=== PATIENT | female | born 1950 | race Caucasian/White ===

== ENCOUNTER 2021-07-12 08:56 | Outpatient (REF) | payer MEDICARE, OTHER, SELFPAY ==
[2021-07-12 11:28] LABS: MANUAL DIFF FLAG NO
[2021-07-12 11:46] LABS: Basophils Percent Auto 0.8 % (0-2); Eosinophils Absolute Auto 0.2 X10*3/uL (0.0-0.4); Eosinophils Percent Auto 4.3 % (0-4); Hematocrit 39.6 % (37.0-47.0); Hemoglobin 12.9 g/dl (12.0-16.0); Imm Gran Abs Auto 0.01 X10*3/uL (0.00-0.03); Imm Gran Pct Auto 0.2 % (0.0-0.4); Lymphocytes Absolute Auto 1.6 X10*3/uL (1.2-4.9); Lymphocytes Percent Auto 29.6 % (20-40); Mean Corpuscular HGB Conc 32.6 g/dl (31.0-35.0); Mean Corpuscular Hemoglobin 31.5 pg (27.0-33.0); Mean Corpuscular Volume 96.6 fL (80.0-98.0); Mean Platelet Volume 11.1 fL (9.4-12.3); Monocytes Absolute Auto 0.5 X10*3/uL (0.1-1.2); Neutrophils Percent Auto 56.1 % (45-73); Platelet Count 257 X10*3/uL (160-400); Red Cell Distribution Width 12.7 % (11.0-16.0); White Blood Count 5.3 X10*3/uL (4.8-10.8)
[2021-07-12 12:03] LABS: Alanine Aminotransferase 15 U/L (0-31); Albumin Level 4.2 g/dL (3.5-5.0); Alkaline Phosphatase 83 U/L (39-117); Anion Gap 12 (12-20); Aspartate Amino Transferase 21 U/L (5-31); Bilirubin Total 0.6 mg/dL (0.0-1.0); Blood Urea Nitrogen 16 mg/dL (9-16); Calcium 9.4 mg/dL (8.4-10.2); Carbon Dioxide 28 mmol/L (22-29); Chloride 101 mmol/L (96-108); Cholesterol 303 mg/dL; Estimated Glomerular Filt Rate > 60; Glucose Fasting 103 mg/dL (60-99); HDL Cholesterol 68 mg/dL; LDL Cholesterol Calculated 223 mg/dl; Potassium 4.8 mmol/L (3.3-5.1); Sodium 136 mmol/L (135-145); Total Protein 6.9 g/dL (6.5-8.0); Triglycerides 61 mg/dL
[2021-07-12 12:14] LABS: Free T4 (Free Thyroxine) 1.02 ng/dL (0.71-1.85); Thyroid Stimulating Hormone 1.44 uIU/mL (0.32-4.0)
== END 2021-07-12 08:57 | disposition home or self-care (01) ==
LOC: HO.HMGCLDS 08:56
PROVIDERS: PCP Internal Medicine; Visit Provider Internal Medicine
DX: E78.5 Hyperlipidemia, unspecified (principal); I10 Essential (primary) hypertension; E05.81 Other thyrotoxicosis with thyrotoxic crisis or storm
CPT/HCPCS: 36415; 80053; 80061; 84439; 84443; 85025

== ENCOUNTER 2021-11-28 08:08 | Outpatient (REF) | payer MEDICARE, OTHER, SELFPAY ==
[2021-11-28 12:03] LABS: Cholesterol 165 mg/dL; HDL Cholesterol 73 mg/dL; LDL Cholesterol Calculated 83 mg/dl; Triglycerides 49 mg/dL
== END 2021-11-28 08:09 | disposition home or self-care (01) ==
LOC: HO.HMGCLDS 08:08
PROVIDERS: PCP Internal Medicine; Visit Provider Internal Medicine
DX: E78.2 Mixed hyperlipidemia (principal)
CPT/HCPCS: 36415; 80061

== ENCOUNTER 2022-08-16 11:00 | Outpatient (REF) | payer MEDICARE, OTHER, SELFPAY ==
[2022-08-16 14:08] LABS: Cholesterol 190 mg/dL; HDL Cholesterol 77 mg/dL; LDL Cholesterol Calculated 103 mg/dl; Triglycerides 50 mg/dL
== END 2022-08-16 11:01 | disposition home or self-care (01) ==
LOC: HO.HMGCLDS 11:00
PROVIDERS: PCP Internal Medicine; Visit Provider Internal Medicine
DX: E78.2 Mixed hyperlipidemia (principal)
CPT/HCPCS: 36415; 80061

== ENCOUNTER 2023-06-04 08:40 | Outpatient (REF) | payer MEDICARE, OTHER, SELFPAY ==
--- NOTE | ~2023-06-04 | MM_ITS ---
EXAMINATION: BONE DENSITOMETRY CLINICAL INDICATION: Other specified disorders of bone density and structure. COMPARISON: Baseline BD dated 05/12/2019. TECHNIQUE: Using a [employer] Mobile DXA System (software version: 13.1) manufactured by [employer], dual-energy x-ray absorptiometry was performed of the lumbar spine and left hip. The images are of good technical quality. Summary results are attached. FINDINGS: LEFT FEMUR, NECK: Current: BMD 0.737 g/cm2, Z-score -0.7, T-score -2.2, osteopenia. Baseline: BMD 0.777 g/cm2. LEFT FEMUR, TOTAL: Current: BMD 0.797 g/cm2, Z-score -0.4, T-score -1.7, osteopenia, 10.1% decrease from baseline (<5% change is not significant). Baseline: BMD 0.887 g/cm2. AP SPINE L1-L4: Current: BMD 0.838 g/cm2, Z-score -1.5, T-score -2.8, osteoporosis, 15.6% decrease from baseline (<5% change is not significant). Baseline: BMD 0.993 g/cm2. IDENTIFIED RISK FACTORS: Menopause, thiazide, low calcium intake. HISTORY OF FRACTURE: None listed. MEDICATIONS: Vitamin D. MM/XR DEXA axial skeleton IMPRESSION: 1. DIAGNOSIS: Osteoporosis based on the lowest T-score value of -2.8 in the lumbar spine applying World Health Organization criteria. 2. 10-YEAR FRACTURE RISK PREDICTION, FRAX: According to the guidelines, FRAX calculation should only be performed on patients in the osteopenia bone density category. Therefore, FRAX was not performed on this patient. 3. Treatment Recommendations: NOF guidelines recommend consideration for treatment in postmenopausal women and men age 50 and older presenting with the following: -A hip or vertebral (clinical or morphometric) fracture. -T-score less than or equal to -2.5 at the femoral neck or spine after appropriate evaluation to exclude secondary causes. -Low bone mass at the hip or spine and a 10-year fracture probability by FRAX of greater than or equal to 3% for hip fracture or greater than or equal to 20% for major osteoporotic fracture based on the [place] adapted WHO algorithm. 4. Other Recommendations: All treatment decisions require clinical judgment and consideration of individual patient factors, including patient preferences, comorbidities, previous drug use, risk factors not captured in the FRAX model (e.g. frailty, falls, vitamin D deficiency, increased bone turnover, interval significant decline in bone density) and possible under or overestimation of fracture risk by FRAX. Additional medical evaluation for secondary cause of low bone mineral density may be appropriate. FUTURE SCAN RECOMMENDATION: People with diagnosed cases of osteoporosis or at high risk for fracture should have regular bone mineral density tests. For patients eligible for Medicare, routine testing is allowed once every 2 years. The testing frequency can be increased to one year for patients who have rapidly progressing disease, those who are receiving or discontinuing medical therapy to restore bone mass, or have additional risk factors.
== END 2023-06-04 08:41 | disposition home or self-care (01) ==
LOC: HO.MAMMO 08:40
PROVIDERS: PCP Internal Medicine; Visit Provider Physician Assistant Medical
DX: Z13.820 Encounter for screening for osteoporosis (principal); Z78.0 Asymptomatic menopausal state; M85.89 Other specified disorders of bone density and structure, multiple sites
CPT/HCPCS: 77080

== ENCOUNTER 2024-03-27 07:56 | Outpatient (REF) | payer MEDICARE, OTHER, SELFPAY ==
[2024-03-27 10:54] LABS: Appearance Urine Cloudy; Color Urine Yellow; Glucose Urine UA Negative (Negative); Leukocyte Esterase Urine Moderate (2+) (Negative); Nitrite Urine Negative (Negative); Specific Gravity - Urine 1.015 (1.005-1.025); UMIC TRIGGER UA YES; Urine Blood Negative (Negative); Urine Ketones Negative (Negative); Urine Protein Negative (Neg-Trace)
[2024-03-27 10:55] LABS: MANUAL DIFF FLAG NO
[2024-03-27 11:05] LABS: Basophils Percent Auto 0.6 % (0-2); Eosinophils Absolute Auto 0.1 X10*3/uL (0.0-0.4); Hematocrit 37.1 % (37.0-47.0); Hemoglobin 12.2 g/dl (12.0-16.0); Imm Gran Abs Auto 0.01 X10*3/uL (0.00-0.03); Imm Gran Pct Auto 0.2 % (0.0-0.4); Lymphocytes Absolute Auto 1.5 X10*3/uL (1.2-4.9); Mean Corpuscular HGB Conc 32.9 g/dl (31.0-35.0); Mean Corpuscular Hemoglobin 31.5 pg (27.0-33.0); Mean Corpuscular Volume 95.9 fL (80.0-98.0); Mean Platelet Volume 10.4 fL (9.4-12.3); Monocytes Absolute Auto 0.6 X10*3/uL (0.1-1.2); Monocytes Percent Auto 11.3 % (2-11); Neutrophils Absolute Auto 2.8 x10*3/uL (2.0-8.3); Neutrophils Percent Auto 55.9 % (45-73); Platelet Count 249 X10*3/uL (160-400); Red Blood Count 3.87 X10*6/uL (4.20-5.50); Red Cell Distribution Width 13.1 % (11.0-16.0)
[2024-03-27 11:06] LABS: Bacteria Urine None Seen (None Seen); Hyaline Casts Urine 0-2 /LPF (0-2); RBC Urine 0-2 /HPF (0-2); Squamous Epithelial Cell Urine 0-2 /HPF (0-2); WBC Urine 0-5 /HPF (0-5)
[2024-03-27 11:35] LABS: Alanine Aminotransferase 21 U/L (0-31); Alkaline Phosphatase 86 U/L (39-117); Anion Gap 12 (12-20); Aspartate Amino Transferase 29 U/L (5-31); Bilirubin Total 0.8 mg/dL (0.0-1.0); Blood Urea Nitrogen 17 mg/dL (9-16); Calcium 9.1 mg/dL (8.4-10.2); Carbon Dioxide 29 mmol/L (22-29); Chloride 104 mmol/L (96-108); Estimated Glomerular Filt Rate > 60; Glucose Random 102 mg/dL (60-115); Potassium 4.7 mmol/L (3.3-5.1); Sodium 140 mmol/L (135-145); Thyroid Stimulating Hormone 0.85 uIU/mL (0.32-4.0); Total Protein 6.8 g/dL (6.5-8.0); Vitamin D 25-OH Total 52.9 ng/mL (>30)
[2024-03-27 11:58] LABS: Creatinine Urine 53.35 mg/dL; Microalbumin Urine < 5.0 mg/L
[2024-03-27 12:31] LABS: Estimated Average Glucose 111 mg/dL; Hemoglobin A1C 116.1242 umol/L; Hemoglobin A1c % 5.5 % (<6.0)
[2024-03-30 17:53] LABS: Lyme Abs Screen <0.90 index
== END 2024-03-27 07:57 | disposition home or self-care (01) ==
LOC: HO.HMGCLDS 07:56
PROVIDERS: PCP Internal Medicine; Visit Provider Physician Assistant Medical
DX: E55.9 Vitamin D deficiency, unspecified (principal); I10 Essential (primary) hypertension; M54.32 Sciatica, left side; R71.8 Other abnormality of red blood cells; R73.01 Impaired fasting glucose; E66.9 Obesity, unspecified
CPT/HCPCS: 36415; 80053; 81001; 82043; 82306; 82570; 83036; 84443; 85025; 86617; 86618

== ENCOUNTER 2024-06-08 06:12 | Day surgery (SDC) | payer MEDICARE, OTHER, SELFPAY ==
--- NOTE | 2024-06-04 15:18 | P.CONAN_ITS ---
HPI - Anesthesia Eval Consult details Narrative: 73yo F for Right Cataract Extraction IOL Insertion No previous cataract on record [facility], [facility] Past Medical History Medical History (Updated 06/03/24 @ 11:16 by Shayla Downey, RN) Environmental allergies HTN (hypertension) Cataracts, bilateral Surgical History Surgical History (Updated 06/03/24 @ 11:15 by Shayla Downey, RN) History of surgery on arm Meds Allergies Allergy/AdvReac Type Severity Reaction Status Date / Time dust,cats,dogs,ragweed,elm,pin Allergy Unknown itching Uncoded 03/26/17 00:00 Home Medications ?Medication ?Instructions ?Recorded ?Confirmed ?Last Taken ?Type calcium 600 mg (as 1 tab PO BID 06/03/24 06/03/24 Unknown History carbonate)-vitamin D3 10 mcg (400 unit) tablet (Calcium 600 + D(3)) cholecalciferol (vitamin D3) 25 25 mcg PO DAILY 06/03/24 06/03/24 Unknown History mcg (1,000 unit) capsule (Vitamin D3) hydrochlorothiazide 12.5 mg capsule 12.5 mg PO DAILY 06/03/24 06/03/24 Unknown History lisinopril 20 mg tablet 20 mg PO DAILY 06/03/24 06/03/24 Unknown History magnesium glycinate 100 mg (as 400 mg PO DAILY 06/03/24 06/03/24 Unknown History glycinate) tablet Exam Height,Weight and Vital Signs: Weight 76.2 kg Assessment and Plan Assessment Anesthesia Assessment: Chart Reviewed
[2024-06-08 06:51] VITALS: BMI 26.5
[2024-06-08] MEDS: Tetracaine HCl/PF 0.5% Oph Sol 4 ML DROPS 1 DROP EYE-RIGHT (07:02)
[2024-06-08 07:05] VITALS: BP 132/86; PULSE 71; RESP 15; TEMP 36.5; O2SAT 98
[2024-06-08] MEDS: Cyclopentolate 1 % Ophth Sol 2 ML DRPBTL 1 DROP EYE-RIGHT ×3 (07:05→07:18)
[2024-06-08] MEDS: Tropicamide 1 % Ophth Sol 3 ML BTL 1 DROP EYE-RIGHT ×3 (07:07→07:19)
[2024-06-08] MEDS: Ketorolac Tromethamine 0.5% Op 5 ML DROPS 1 DROP EYE-RIGHT ×3 (07:08→07:20)
[2024-06-08] MEDS: Phenylephrine HCL 2.5% Oph SoL 2 ML BOTTLE 1 DROP EYE-RIGHT ×3 (07:10→07:22)
[2024-06-08] MEDS: Lactated Ringers 500 ML 50 ML IV (07:17)
--- NOTE | 2024-06-08 07:23 | P.CONAN_ITS ---
[facility] Past Medical History Medical History Environmental allergies HTN (hypertension) Cataracts, bilateral Functional capacity: independent ambulation Patient : No Family History Family history of problems with anesthesia: No Surgical History Surgical History History of surgery on arm History of Problems with Anesthesia: No Social History Social History Patient Tobacco Use Status: Former Tobacco user Use of substances other than those prescribed or required for medical reasons: No Are you DNR?: No Advance Directives: No Advance Directives Information Provided: Yes Meds Allergies Allergy/AdvReac Type Severity Reaction Status Date / Time dust,cats,dogs,ragweed,elm,pin Allergy Unknown itching Uncoded 03/26/17 00:00 Active Medications: Current Medications Lactated Ringer's (Lr) 500 mls @ 50 mls/hr IV .Q10H BANG Stop: 06/08/24 16:44 Last Admin: 06/08/24 07:17 Dose: 50 mls/hr Povidone Iodine (Povidone Iodine 5 % Ophth Soln 30 Ml Bottle) 1 appl EYE-RIGHT PREOP PRN PRN Reason: Pre-Op Surgical Implant Prophy Home Medications ?Medication ?Instructions ?Recorded ?Confirmed ?Last Taken ?Type calcium 600 mg (as 1 tab PO BID 06/03/24 06/03/24 Unknown History carbonate)-vitamin D3 10 mcg (400 unit) tablet (Calcium 600 + D(3)) cholecalciferol (vitamin D3) 25 25 mcg PO DAILY 06/03/24 06/03/24 Unknown History mcg (1,000 unit) capsule (Vitamin D3) hydrochlorothiazide 12.5 mg capsule 12.5 mg PO DAILY 06/03/24 06/03/24 Unknown History lisinopril 20 mg tablet 20 mg PO DAILY 06/03/24 06/03/24 Unknown History magnesium glycinate 100 mg (as 400 mg PO DAILY 06/03/24 06/03/24 Unknown History glycinate) tablet Exam Height,Weight and Vital Signs: Height 5 ft 7 in Weight 76.657 kg Airway Mallampati Class: Patient Non-Cooperative TM Dist: >3cm Neck ROM: Full Heart: RRR Lungs: CTA Assessment and Plan Assessment Anesthesia Assessment: Anesthesia Plan Discussed and Chart Reviewed Final Anesthetic Review Family History of Problems with Anesthesia: No History of Problems with Anesthesia: No NPO: Yes ASA Class: II Final Preanesthetic Review: Meds/Allgs Chart Reviewed, Consent Obtained/Reviewed and Anes Risks/Benef Reviewed Patient Risk: Low Procedure Risk: Low Anesthetic Plan Anesthetic Plan: MAC: Disposition: Standard PACU
--- NOTE | 2024-06-08 07:40 | P.PCNO_ITS ---
Ophthalmology Procedure Procedure Date of Service: 06/08/24 Ophthalmology Viscoelastic: Healon Duet Dual Pack Pro Ophthalmology Lenses: IOL Acrysof MP - MA60AC (21) Procedure Notes: PREOPERATIVE DIAGNOSIS: Decreased visual acuity right eye secondary to cataract POSTOPERATIVE DIAGNOSIS: Same PROCEDURE: Right cataract extraction with intraocular lens insertion SURGEON: Marcelino Rice M.D. ANESTHESIA: Topical/MAC ESTIMATED BLOOD LOSS: None COMPLICATIONS: None After obtaining informed consent, the patient was brought to the operating room suite and placed in the supine position. After adequate sedation per anesthesia, topical drops of Tetracaine were given to the right eye. The eye was then prepped and draped in the usual sterile fashion. The operating room microscope was then positioned over the operative eye and a lid speculum placed. A paracentesis was created. Viscoelastic was then instilled into the anterior chamber. A three plane incision was then created temporally, utilizing a 2.85 mm keratome. Capsulotomy forceps were then utilized to create a circular tear capsulotomy. Hydrodissection and hydrodelineation were carried out until adequate mobilization of the nucleus occurred. Phacoemulsification was then utilized to remove the dense central nucl eus followed by removal of the cortical material utilizing the automated aspiration irrigation unit. Viscoelastic was instilled into the posterior capsular bag followed by placement of a posterior chamber intraocular lens without difficulty. The residual Viscoelastic was then removed utilizing the automated IA machine. The wound was checked and found to be watertight. The patient tolerated the procedure well and the lid speculum was removed. Intracameral injection of Vigamox 0.1 mL followed by a subtenon injection of Kenalog-40 0.2 mL were administered. The patient will be seen in the a.m.
--- NOTE | 2024-06-08 07:40 | MHC.SHP ---
Pre-Procedural Eval Section A - 24 Hr Update-Section A only Date of Service: 06/08/24 The patient is an INPATIENT: No Changes since office visit: No Cold of Flu in the past 2 weeks, No New Medical Problems, No Changes in Medication and No Patient answered all questions The patient has been examined within 24 hours of the surgical procedure. The History & Physical has been completed within 30 days and I have reviewed it.: Yes Section B - Complete if H&P > 30 days Chief Complaint: Age-related nuclear cataract, right eye Allergies: Allergies Allergy/AdvReac Type Severity Reaction Status Date / Time dust,cats,dogs,ragweed,elm,pin Allergy Unknown itching Uncoded 03/26/17 00:00 Plan Diagnosis/Plan: Unchanged I have reviewed the history and physical and performed a pertinent physical examination on my patient. No changes have occurred unless specified. Time Spent With Patient Time: Total time managing care of this patient today ____ minutes.
[2024-06-08 08:08] VITALS: BP 117/70; PULSE 76; RESP 16; TEMP 36.1; O2SAT 99
--- NOTE | 2024-06-08 09:31 | HO.POSTANES ---
Post Anesthesia Evaluation Post Anesthesia Evaluation Date of Service: 06/08/24 Vital Signs: Vital Signs Temp Pulse Resp BP Pulse Ox O2 Del Method 06/08/24 08:08 97 F 76 16 117/70 99 Room Air 06/08/24 07:05 97.7 F 71 15 132/86 98 Room Air Anesthesia: Monitored Mental Status: Awake Pain Control: Satisfactory Nausea/Vomiting: None Hydration: Adequate Anesthesia-Related Issues: No Anes. Related Issues
== END 2024-06-08 08:17 | disposition home or self-care (01) ==
PROVIDERS: PCP Internal Medicine; Visit Provider Ophthalmology
PROC: (CPT 66985; principal; 2024-06-08 08:00)
DX: H25.11 Age-related nuclear cataract, right eye (principal); H52.4 Presbyopia; H18.413 Arcus senilis, bilateral; H11.153 Pinguecula, bilateral; H43.393 Other vitreous opacities, bilateral; Z97.3 Presence of spectacles and contact lenses; I10 Essential (primary) hypertension; J30.9 Allergic rhinitis, unspecified; Q78.2 Osteopetrosis; Z79.899 Other long term (current) drug therapy; Z87.891 Personal history of nicotine dependence
CPT/HCPCS: 66984; J2250; J3010; J3301; V2630

== ENCOUNTER 2024-06-22 06:48 | Day surgery (SDC) | payer MEDICARE, OTHER, SELFPAY ==
[2024-06-17 14:48] VITALS: BMI 26.3
--- NOTE | 2024-06-18 14:27 | HO.ANESPROP2 ---
Documented by User: Alyson Knutson NP 06/18/24 14:27 HPI - Anesthesia Eval Consult details Narrative: 73yo F for Left Cataract Extraction IOL Insertion Right eye 06/08/24: Midaz 2 PMF[facility] Past Medical History Medical History Environmental allergies HTN (hypertension) Cataracts, bilateral Family History Family history of problems with anesthesia: No Surgical History Surgical History (Updated 06/17/24 @ 14:47 by Shayla Downey, FRANTZ) Hx of right cataract extraction (06/08/24) History of surgery on arm History of Problems with Anesthesia: No Social History Social History Patient Tobacco Use Status: Former Tobacco user Advance Directives: No Advance Directives Information Provided: Yes Meds Allergies Allergy/AdvReac Type Severity Reaction Status Date / Time dust,cats,dogs,ragweed,elm,pin Allergy Unknown itching Uncoded 03/26/17 00:00 Home Medications ?Medication ?Instructions ?Recorded ?Confirmed ?Last Taken ?Type calcium 600 mg (as 1 tab PO BID 06/03/24 06/17/24 Unknown History carbonate)-vitamin D3 10 mcg (400 unit) tablet (Calcium 600 + D(3)) cholecalciferol (vitamin D3) 25 25 mcg PO DAILY 06/03/24 06/17/24 Unknown History mcg (1,000 unit) capsule (Vitamin D3) hydrochlorothiazide 12.5 mg capsule 12.5 mg PO DAILY 06/03/24 06/17/24 Unknown History lisinopril 20 mg tablet 20 mg PO DAILY 06/03/24 06/17/24 Unknown History magnesium glycinate 100 mg (as 400 mg PO DAILY 06/03/24 06/17/24 Unknown History glycinate) tablet Exam Height,Weight and Vital Signs: Height 5 ft 7 in Weight 76.2 kg Assessment and Plan Assessment Anesthesia Assessment: Chart Reviewed Final Anesthetic Review Family History of Problems with Anesthesia: No History of Problems with Anesthesia: No Documented by User: Billie Hughes MD 06/22/24 07:33 [facility] Past Medical History Medical History Environmental allergies HTN (hypertension) Cataracts, bilateral Surgical History Surgical History (Updated 06/17/24 @ 14:47 by Shayla Downey, RN) Hx of right cataract extraction (06/08/24) History of surgery on arm Social History Social History Patient Tobacco Use Status: Former Tobacco user Advance Directives: No Advance Directives Information Provided: Yes Meds Allergies Allergy/AdvReac Type Severity Reaction Status Date / Time dust,cats,dogs,ragweed,elm,pin Allergy Unknown itching Uncoded 03/26/17 00:00 Home Medications ?Medication ?Instructions ?Recorded ?Confirmed ?Last Taken ?Type calcium 600 mg (as 1 tab PO BID 06/03/24 06/17/24 Unknown History carbonate)-vitamin D3 10 mcg (400 unit) tablet (Calcium 600 + D(3)) cholecalciferol (vitamin D3) 25 25 mcg PO DAILY 06/03/24 06/17/24 Unknown History mcg (1,000 unit) capsule (Vitamin D3) hydrochlorothiazide 12.5 mg capsule 12.5 mg PO DAILY 06/03/24 06/17/24 Unknown History lisinopril 20 mg tablet 20 mg PO DAILY 06/03/24 06/17/24 Unknown History magnesium glycinate 100 mg (as 400 mg PO DAILY 06/03/24 06/17/24 Unknown History glycinate) tablet Exam Airway Mallampati Class: II TM Dist: >3cm Neck ROM: Full Heart: rrr Lungs: cta Assessment and Plan Assessment Anesthesia Assessment: Anesthesia Plan Discussed Final Anesthetic Review NPO: Yes ASA Class: II Final Preanesthetic Review: No Changes in Pt Med Stat, Meds/Allgs Chart Reviewed and Consent Obtained/Reviewed Patient Risk: Low Procedure Risk: Low Anesthetic Plan Anesthetic Plan: MAC: Disposition: Standard PACU
[2024-06-22] MEDS: Lactated Ringers 500 ML 50 ML IV (07:16)
[2024-06-22] MEDS: Tropicamide 1 % Ophth Sol 3 ML BTL 1 DROP EYE-LEFT ×3 (07:16→07:27)
[2024-06-22] MEDS: Ketorolac Tromethamine 0.5% Op 5 ML DROPS 1 DROP EYE-LEFT ×3 (07:16→07:27)
[2024-06-22] MEDS: Cyclopentolate 1 % Ophth Sol 2 ML DRPBTL 1 DROP EYE-LEFT ×3 (07:17→07:27)
[2024-06-22] MEDS: Phenylephrine HCL 2.5% Oph SoL 2 ML BOTTLE 1 DROP EYE-LEFT ×3 (07:17→07:27)
[2024-06-22 07:20] VITALS: BP 146/79; PULSE 72; RESP 18; TEMP 36.6; O2SAT 96
--- NOTE | 2024-06-22 07:38 | MHC.SHP ---
Pre-Procedural Eval Section A - 24 Hr Update-Section A only Date of Service: 06/22/24 The patient is an INPATIENT: No Changes since office visit: No Cold of Flu in the past 2 weeks, No New Medical Problems, No Changes in Medication and No Patient answered all questions The patient has been examined within 24 hours of the surgical procedure. The History & Physical has been completed within 30 days and I have reviewed it.: Yes Section B - Complete if H&P > 30 days Chief Complaint: Age-related nuclear cataract, left eye Allergies: Allergies Allergy/AdvReac Type Severity Reaction Status Date / Time dust,cats,dogs,ragweed,elm,pin Allergy Unknown itching Uncoded 03/26/17 00:00 Plan Diagnosis/Plan: Unchanged I have reviewed the history and physical and performed a pertinent physical examination on my patient. No changes have occurred unless specified. Time Spent With Patient Time: Total time managing care of this patient today ____ minutes.
--- NOTE | 2024-06-22 07:38 | HO.PNOPHT ---
Ophthalmology Procedure Procedure Date of Service: 06/22/24 Ophthalmology Viscoelastic: Healon Duet Dual Pack Pro Ophthalmology Lenses: IOL Acrysof MP - MA60AC (20.5) Procedure Notes: PREOPERATIVE DIAGNOSIS: Decreased visual acuity left eye secondary to cataract POSTOPERATIVE DIAGNOSIS: Same PROCEDURE: Left cataract extraction with intraocular lens insertion SURGEON: Marcelino Rice M.D. ANESTHESIA: Topical/MAC ESTIMATED BLOOD LOSS: None COMPLICATIONS: None After obtaining informed consent, the patient was brought to the operation room suite and placed in the supine position. After adequate sedation per anesthesia, topical drops of Tetracaine were given to the left eye. The eye was then prepped and draped in the usual sterile fashion. The operating room microscope was then positioned over the operative eye and a lid speculum placed. A paracentesis was created. Viscoelastic was then instilled into the anterior chamber. A three plane incision was then created temporally, utilizing a 2.85 mm keratome. Capsulotomy forceps were then utilized to create a circular tear capsulotomy. Hydrodissection and hydrodelineation were carried out until adequate mobilization of the nucleus occurred. Phacoemulsification was then utilized to remove the dense central nucleus followed by removal of the cortical material utilizing the automated aspiration irrigation unit. Viscoat elastic was instilled into the posterior capsular bag followed by placement of a posterior chamber intraocular lens without difficulty. The residual Viscoat elastic was then removed utilizing the automated IA machine. The wound was check and found to be watertight. The patient tolerated the procedure well and the lid speculum was removed. Intracameral injection of Vigamox 0.1 mL followed by a subtenon injection of Kenalog-40 0.2 mL were administered. The patient will be seen in the a.m.
[2024-06-22 08:00] VITALS: BP 120/64; PULSE 71; RESP 15; TEMP 36.2; O2SAT 99
[2024-06-22 08:15] VITALS: BP 115/68; PULSE 77; RESP 16; TEMP 36.2; O2SAT 96
== END 2024-06-22 08:18 | disposition home or self-care (01) ==
PROVIDERS: PCP Internal Medicine; Visit Provider Ophthalmology
PROC: (CPT 66985; principal; 2024-06-22 08:30)
DX: H25.12 Age-related nuclear cataract, left eye (principal); H52.4 Presbyopia; Z97.3 Presence of spectacles and contact lenses; H18.413 Arcus senilis, bilateral; H43.393 Other vitreous opacities, bilateral; H11.153 Pinguecula, bilateral; I10 Essential (primary) hypertension; J30.9 Allergic rhinitis, unspecified; Q78.2 Osteopetrosis; Z79.899 Other long term (current) drug therapy; Z98.890 Other specified postprocedural states; Z87.891 Personal history of nicotine dependence
CPT/HCPCS: 66984; J2250; J3301; V2630

== ENCOUNTER 2024-11-30 11:20 | Outpatient (AMB) | payer MEDICARE, OTHER, SELFPAY ==
--- OUTSIDE RECORDS SUMMARY | 2024-11-30 12:46 | XMS_ITS | Patient Health Record ---
Author Organization [facility] Address [address] [place] [address] Care Team Providers Care Planer Operator Name Role Phone SheliamalaikamarcyKirsten Primary Care Provider Unavail able Black, Chayito Unavailable [phone] Allergies No Known Allergies Results Component Value Reference Range Notes X ray : Foot, left 3V Reviewed date:05/04/2024 12:07:27 PM Interpretation:See Examination above Performing Lab: Notes/Report: See Examination above X ray : Foot, right 3V Reviewed date:05/04/2024 12:07:36 PM Interpretation:See Examination above Performing Lab: Notes/Report: See Examination above Reason For Referral No Information Medications Medication SIG (Take, Route, Frequency, Duration) Notes Start Date End Date Status Vitamin D3 Active hydroCHLOROthiazide 12.5 MG 1 capsule in the morning Orally Once a day Active Magnesium Active Vitamin C Active Calcium Active Lisinopril 20 MG 1 tablet Orally Once a day Active Social History Tobacco Use: Social History Observation Description Date Details (start date - stop date) Former Smoker NA - NA Tobacco use other than smoking: Question Answer Notes Are you an other tobacco user? No Tobacco Control (Standard) Question Answer Notes Tobacco use: Former smoker Additional Findings: Tobacco non-user Current no nsmoker Problems Problem Type SNOMED Code ICD Code Onset Dates Problem Status W/U Status Risk Notes Problem Acquired hallux valgus (09556829) Acquired hallux interphalangeus of left foot (M20.12) Active confirmed Problem Acquired hallux valgus (98922743) Acquired hallux interphalangeus of right foot (M20.11) Active confirmed Vital Signs Blood pressure diastolic 80 mm Hg 05/04/2024 Height 5 ft 7inch in 05/04/2024 Blood pressure systolic 120 mm Hg 05/04/2024 Weight 166 lbs 05/04/2024 BMI 26 kg/m2 05/04/2024 Encounters Encounter Location Date Provider Diagnosis [facility] [address] 05/04/2024 Chayito Black Pain in left foot M79.672 ; Acquired hallux interphalangeus of right foot M20.11 ; Pain in left ankle and joints of left foot M25.572 ; Bursitis of left foot M77.52 ; Pain in right foot M79.671 ; Pain in right ankle and joints of right foot M25.571 ; Bursitis of right foot M77.51 ; Acquired hallux interphalangeus of left foot M20.12 ; Bunion, left M21.612 and Bunion, right M21.611 [facility] [address] 05/04/2024 Chayito Black Assessments Encounter Date Diagnosis (ICD Code) Assessment Notes Treatment Notes Treatment Clinical Notes Section Notes 05/04/2024 Pain in left foot (ICD-10 - M79.672) 05/04/2024 Acquired hallux interphalangeus of right foot (ICD-10 - M20.11) 05/04/2024 Pain in left ankle and joints of left foot (ICD-10 - M25.572) 05/04/2024 Bursitis of left foot (ICD-10 - M77.52) 05/04/2024 Pain in right foot (ICD-10 - M79.671) 05/04/2024 Pain in right ankle and joints of right foot (ICD-10 - M25.571) 05/04/2024 Bursitis of right foot (ICD-10 - M77.51) 05/04/2024 Acquired hallux interphalangeus of left foot (ICD-10 - M20.12) 05/04/2024 Bunion, left (ICD-10 - M21.612) 05/04/2024 Bunion, right (ICD-10 - M21.611) Plan Of Treatment No Information Insurance Providers Payer Name Payer Address Payer Phone Subscriber Number Group Number Insured Name Patient Relationship to Insured Coverage Start Date Coverage End Date Medicare National [employer] [address] [place] [address] [id number] DuffieldAlley Self - patient is the insured [employer] [address] [place] [address] [id number] OumarJodine Self - patient is the insured Medical (General) History Medical History History ICD Code Broken bones Cataracts covid-19 High Blood Pressure Osteoporosis Sciatica
== END 2024-11-30 11:47 | disposition home or self-care (01) ==
LOC: HO.HMGAL 11:20
PROVIDERS: PCP Internal Medicine; Visit Provider Registered Nurse Emergency
DX: J30.89 Other allergic rhinitis (principal)
CPT/HCPCS: 95117; 95165

== ENCOUNTER 2024-12-09 10:47 | Outpatient (AMB) | payer MEDICARE, OTHER, SELFPAY | END 2024-12-09 10:50 | disposition home or self-care (01) | LOC: HO.HMGAL 10:47 | PROVIDERS: PCP Internal Medicine; Visit Provider Registered Nurse Emergency | DX: J30.89 Other allergic rhinitis (principal) | CPT/HCPCS: 95117; 95165 ==

== ENCOUNTER 2024-12-16 13:06 | Outpatient (AMB) | payer MEDICARE, OTHER, SELFPAY ==
--- OUTSIDE RECORDS SUMMARY | 2024-12-16 16:08 | XMS_ITS | Patient Health Record ---
Author Organization [facility] Address [address] [place] [address] Care Team Providers Care Industrial Coffee Grinder Name Role Phone SheliamalaikamarcyKirsten Primary Care Provider Unavail able Black, Chayito Unavailable [phone] Allergies No Known Allergies Results Component Value [...] Status Risk Notes Problem Acquired hallux valgus (02027370) Acquired hallux interphalangeus of left foot (M20.12) Active confirmed Problem Acquired hallux valgus (32743914) Acquired hallux interphalangeus of right foot (M20.11) Active confirmed Vital Signs Blood pressure diastolic 80 mm Hg 05/04/2024 Height 5 ft 7inch in 05/04/2024 Blood pressure systolic 120 mm Hg 05/04/2024 Weight 166 lbs 05/04/2024 BMI 26 kg/m2 05/04/2024 Encounters Encounter Location Date Provider Diagnosis [facility] [address] 05/04/2024 Chayito Black Pain in left foot [...] Bunion, left M21.612 and Bunion, right M21.611 [facility] [address] 05/04/2024 Chayito Black Assessments Encounter Date Diagnosis [...] Inc [address] [place] [address] [id number] MarionAlley Self - patient is the insured [employer] [address] [place] [address] [phone] [id number] OumarJodine Self - patient is the insured Medical (General) History Medical History History ICD Code Broken bones Cataracts covid-19 High Blood Pressure Osteoporosis Sciatica
== END 2024-12-16 13:13 | disposition home or self-care (01) ==
LOC: HO.HMGAL 13:06
PROVIDERS: PCP Internal Medicine; Visit Provider Registered Nurse Emergency
DX: J30.89 Other allergic rhinitis (principal)
CPT/HCPCS: 95117; 95165

== ENCOUNTER 2024-12-23 14:05 | Outpatient (AMB) | payer MEDICARE, OTHER, SELFPAY ==
--- OUTSIDE RECORDS SUMMARY | 2024-12-23 17:50 | XMS_ITS | Patient Health Record ---
Author Organization [facility] Address [address] [place] [address] Care Team Providers Care Bleach Packer Name Role Phone SheliamalaikamarcyKirsten Primary Care Provider Unavail able Black, Chayito Unavailable [phone] Allergies No Known Allergies Results Component Value [...] Status Risk Notes Problem Acquired hallux valgus (69737905) Acquired hallux interphalangeus of left foot (M20.12) Active confirmed Problem Acquired hallux valgus (18836145) Acquired hallux interphalangeus of right foot (M20.11) Active confirmed Vital Signs Blood pressure diastolic 80 mm Hg 05/04/2024 Height 5 ft 7inch in 05/04/2024 Blood pressure systolic 120 mm Hg 05/04/2024 Weight 166 lbs 05/04/2024 BMI 26 kg/m2 05/04/2024 Encounters Encounter Location Date Provider Diagnosis [address] [address] 05/04/2024 Chayito Black Pain in left foot [...] Bunion, left M21.612 and Bunion, right M21.[address] [address] 05/04/2024 Chayito Paredes [address] [address] 05/04/2024 Chayito Paredes Assessments Encounter Date Diagnosis (ICD Code) Assessment [...] Inc [address] [place] [address] [id number] Alley Oseguera Self - patient is the insured [employer] [address] [place] [address] [id number] Alley Oseguera Self - patient is the insured Medical (General) History Medical History History ICD Code Broken bones Cataracts covid-19 High Blood Pressure Osteoporosis Sciatica
== END 2024-12-23 14:15 | disposition home or self-care (01) ==
LOC: HO.HMGAL 14:05
PROVIDERS: PCP Internal Medicine; Visit Provider Registered Nurse Emergency
DX: J30.89 Other allergic rhinitis (principal)
CPT/HCPCS: 95117; 95165

== ENCOUNTER 2024-12-30 10:39 | Outpatient (AMB) | payer MEDICARE, OTHER, SELFPAY ==
--- OUTSIDE RECORDS SUMMARY | 2024-12-30 13:19 | XMS_ITS | Patient Health Record ---
Author Organization [facility] Address [address] [facility] [place] [address] Care Team Providers Care De Alcholizer Name Role Phone SheliamalaikamarcyKirsten Primary Care Provider Unavail able Black, Chayito Unavailable [phone] Allergies No Known Allergies Results Component Value [...] Status Risk Notes Problem Acquired hallux valgus (33325185) Acquired hallux interphalangeus of left foot (M20.12) Active confirmed Problem Acquired hallux valgus (66623577) Acquired hallux interphalangeus of right foot (M20.11) Active confirmed Vital Signs Blood pressure diastolic 80 mm Hg 05/04/2024 Height 5 ft 7inch in 05/04/2024 Blood pressure systolic 120 mm Hg 05/04/2024 Weight 166 lbs 05/04/2024 BMI 26 kg/m2 05/04/2024 Encounters Encounter Location Date Provider Diagnosis [address] [address] 05/04/2024 Chayito Black Pain in left foot [...] Bunion, left M21.612 and Bunion, right M21.[address] [address] 05/04/2024 Chayito Paredes [address] [address] 05/04/2024 Chayito Paredes Assessments Encounter Date Diagnosis [...] Inc [address] [place] [address] [id number] Alley Oseguera Self - patient is the insured [employer] [address] [place] [address] [id number] Alley Oseguera Self - patient is the insured Medical (General) History Medical History History ICD Code Broken bones Cataracts covid-19 High Blood Pressure Osteoporosis Sciatica
== END 2024-12-30 10:42 | disposition home or self-care (01) ==
LOC: HO.HMGAL 10:39
PROVIDERS: PCP Internal Medicine; Visit Provider Registered Nurse Emergency
DX: J30.89 Other allergic rhinitis (principal)
CPT/HCPCS: 95117; 95165

== ENCOUNTER 2025-01-13 10:51 | Outpatient (AMB) | payer MEDICARE, OTHER, SELFPAY | END 2025-01-13 10:52 | disposition home or self-care (01) | LOC: HO.HMGAL 10:51 | PROVIDERS: PCP Internal Medicine; Visit Provider Registered Nurse Emergency | DX: J30.89 Other allergic rhinitis (principal) | CPT/HCPCS: 95117; 95165 ==

== ENCOUNTER 2025-01-20 11:54 | Outpatient (AMB) | payer MEDICARE, OTHER, SELFPAY ==
--- OUTSIDE RECORDS SUMMARY | 2025-01-20 15:05 | XMS_ITS | Patient Health Record ---
Author Organization [facility] Address [address] [facility] [place] [address] Care Team Providers Care Photographic Press Screwmaker Name Role Phone SheliamalaikamarcyKirsten Primary Care Provider Unavail able Black, Chayito Unavailable [phone] Allergies No Known Allergies Results Component Value [...] Status Risk Notes Problem Acquired hallux valgus (50417298) Acquired hallux interphalangeus of left foot (M20.12) Active confirmed Problem Acquired hallux valgus (53816372) Acquired hallux interphalangeus of right foot (M20.11) Active confirmed Vital Signs Blood pressure diastolic 80 mm Hg 05/04/2024 Height 5 ft 7inch in 05/04/2024 Blood pressure systolic 120 mm Hg 05/04/2024 Weight 166 lbs 05/04/2024 BMI 26 kg/m2 05/04/2024 Encounters Encounter Location Date Provider Diagnosis [address] [address] 05/04/2024 Chayito Black Pain in left foot [...] Bunion, left M21.612 and Bunion, right M21.[address] [address] 05/04/2024 Chayito Paredes [address] [address] 05/04/2024 Chayito Paredes Assessments Encounter Date Diagnosis [...] Inc [address] [place] [address] [id number] Alley Oseguera Self - patient is the insured [employer] [address] [place] [address] [id number] Alley Oseguera Self - patient is the insured Medical (General) History Medical History History ICD Code Broken bones Cataracts covid-19 High Blood Pressure Osteoporosis Sciatica
== END 2025-01-20 11:54 | disposition home or self-care (01) ==
LOC: HO.HMGAL 11:54
PROVIDERS: PCP Internal Medicine; Visit Provider Registered Nurse Emergency
DX: J30.89 Other allergic rhinitis (principal)
CPT/HCPCS: 95117; 95165

== ENCOUNTER 2025-01-27 08:38 | Outpatient (AMB) | payer MEDICARE, OTHER, SELFPAY ==
--- OUTSIDE RECORDS SUMMARY | 2025-01-27 09:05 | XMS_ITS | Patient Health Record ---
Author Organization [facility] Address [address] [facility] [place] [address] Care Team Providers Care Senior Fire Protection Engineer Name Role Phone SheliamalaikamarcyKirsten Primary Care Provider Unavail able Black, Chayito Unavailable [phone] Allergies No Known Allergies Results Component Value [...] Status Risk Notes Problem Acquired hallux valgus (24824671) Acquired hallux interphalangeus of left foot (M20.12) Active confirmed Problem Acquired hallux valgus (89092555) Acquired hallux interphalangeus of right foot (M20.11) Active confirmed Vital Signs Blood pressure diastolic 80 mm Hg 05/04/2024 Height 5 ft 7inch in 05/04/2024 Blood pressure systolic 120 mm Hg 05/04/2024 Weight 166 lbs 05/04/2024 BMI 26 kg/m2 05/04/2024 Encounters Encounter Location Date Provider Diagnosis [address] [address] 05/04/2024 Chayito Black Pain in left foot [...] Bunion, left M21.612 and Bunion, right M21.[address] [address] 05/04/2024 Chayito Paredes [address] [address] 05/04/2024 Chayito Paredes Assessments Encounter Date Diagnosis [...] Inc [address] [place] [address] [id number] Alley Oseguera Self - patient is the insured [employer] [address] [place] [address] [id number] Alley Oseguera Self - patient is the insured Medical (General) History Medical History History ICD Code Broken bones Cataracts covid-19 High Blood Pressure Osteoporosis Sciatica
== END 2025-01-27 08:38 | disposition home or self-care (01) ==
LOC: HO.HMGAL 08:38
PROVIDERS: PCP Internal Medicine; Visit Provider Registered Nurse Emergency
DX: J30.89 Other allergic rhinitis (principal)
CPT/HCPCS: 95117; 95165

== ENCOUNTER 2025-02-03 13:42 | Outpatient (AMB) | payer MEDICARE, OTHER, SELFPAY ==
--- OUTSIDE RECORDS SUMMARY | 2025-02-03 17:28 | XMS_ITS | Patient Health Record ---
Author Organization [facility] Address [address] [facility] [place] [address] Care Team Providers Care Gameroom Technician Name Role Phone SheliamalaikamarcyKirsten Primary Care Provider Unavail able Black, Chayito Unavailable [phone] Allergies No Known Allergies Results Component Value [...] Status Risk Notes Problem Acquired hallux valgus (11373929) Acquired hallux interphalangeus of left foot (M20.12) Active confirmed Problem Acquired hallux valgus (55715086) Acquired hallux interphalangeus of right foot (M20.11) Active confirmed Vital Signs Blood pressure diastolic 80 mm Hg 05/04/2024 Height 5 ft 7inch in 05/04/2024 Blood pressure systolic 120 mm Hg 05/04/2024 Weight 166 lbs 05/04/2024 BMI 26 kg/m2 05/04/2024 Encounters Encounter Location Date Provider Diagnosis [address] [address] 05/04/2024 Chayito Black Pain in left foot [...] Bunion, left M21.612 and Bunion, right M21.[address] [address] 05/04/2024 Chayito Paredes [address] [address] 05/04/2024 Chayito Paredes Assessments Encounter Date Diagnosis [...] Inc [address] [place] [address] [id number] Alley Oseguera Self - patient is the insured [employer] [address] [place] [address] [id number] Alley Oseguera Self - patient is the insured Medical (General) History Medical History History ICD Code Broken bones Cataracts covid-19 High Blood Pressure Osteoporosis Sciatica
== END 2025-02-03 13:44 | disposition home or self-care (01) ==
LOC: HO.HMGAL 13:42
PROVIDERS: PCP Internal Medicine; Visit Provider Registered Nurse Emergency
DX: J30.89 Other allergic rhinitis (principal)
CPT/HCPCS: 95117; 95165

== ENCOUNTER 2025-02-10 09:32 | Outpatient (AMB) | payer MEDICARE, OTHER, SELFPAY ==
--- OUTSIDE RECORDS SUMMARY | 2025-02-10 10:40 | XMS_ITS | Patient Health Record ---
Author Organization [facility] Address [address] [facility] [place] [address] Care Team Providers Care Phys Asst Name Role Phone Kapil Kirsten Primary Care Provider Unavail able Black, Chayito Unavailable [phone] Abdirashid Tracy Unavailable [phone] Allergies No Known Allergies Results Component Value [...] Status Risk Notes Problem Acquired hallux valgus (36657369) Acquired hallux interphalangeus of left foot (M20.12) Active confirmed Problem Acquired hallux valgus (47059605) Acquired hallux interphalangeus of right foot (M20.11) Active confirmed Vital Signs Blood pressure diastolic 80 mm Hg 05/04/2024 Height 5 ft 7inch in 05/04/2024 Blood pressure systolic 120 mm Hg 05/04/2024 Weight 166 lbs 05/04/2024 BMI 26 kg/m2 05/04/2024 Encounters Encounter Location Date Provider Diagnosis [address] [address] 05/04/2024 Chayito Black Pain in left foot [...] Bunion, left M21.612 and Bunion, right M21.[address] [address] 05/04/2024 Chayito Paredes [address] [address] 05/04/2024 Chayito Paredes Assessments Encounter Date Diagnosis [...] right (ICD-10 - M21.611) Plan Of Treatment Next Appt Details Provider Name:Tracy garcia, 02/10/2025 02:00:00 PM, [address] [place] [address], [phone], Insurance Providers Payer Name Payer Address Payer Phone Subscriber Number Group Number Insured Name Patient Relationship to Insured Coverage Start Date Coverage End Date Medicare National Govt Svcs Inc [address] [place] [address] [id number] Alley Oseguera Self - patient is the insured 8 for Life [address] [place] [address] [phone] [id number] Alley Oseguera Self - patient is the insured Medical (General) History Medical History History ICD Code Broken bones Cataracts covid-19 High Blood Pressure Osteoporosis Sciatica
== END 2025-02-10 09:32 | disposition home or self-care (01) ==
LOC: HO.HMGAL 09:32
PROVIDERS: PCP Internal Medicine; Visit Provider Registered Nurse Emergency
DX: J30.89 Other allergic rhinitis (principal)
CPT/HCPCS: 95117; 95165

== ENCOUNTER 2025-02-17 11:32 | Outpatient (AMB) | payer MEDICARE, OTHER, SELFPAY ==
--- OUTSIDE RECORDS SUMMARY | 2025-02-17 14:22 | XMS_ITS | Patient Health Record ---
Author Organization [facility] Address [address] [facility] [place], [place] [address] Care Team Providers Care Photolithographer Name Role Phone Kirsten Dick Primary Care Provider Unavail able Mendenhall, Tracy Unavailable [phone] Black, Chayito Unavailable [phone] Allergies No Known Allergies Results Component Value [...] Duration) Notes Start Date End Date Status Calcium Active Magnesium Active Vitamin C Active Vitamin D3 Active hydroCHLOROthiazide 12.5 MG 1 capsule in the morning Orally Once a day Active predniSONE 5 MG 4 tablets once a day for 3 days, 3 tablets once a day for 3 days, 2 tablets once a day for 3 days, 1 tablet once a day for 3 days Orally; Duration: 12 days 02/10/2025 Active Lisinopril 20 MG 1 tablet Orally Once a day Active Immunizations Vaccine Route Administration Date Status Comme nts Influenza Unknown 01/08/2025 Administered Social History Tobacco Use: Social History Observation [...] Status Risk Notes Problem Acquired hallux valgus (65571963) Acquired hallux interphalangeus of left foot (M20.12) Active confirmed Problem Acquired hallux valgus (04203230) Acquired hallux interphalangeus of right foot (M20.11) Active confirmed Problem Localized, primary osteoarthritis of the ankle and/or foot (025644717) Primary osteoarthritis of right ankle (M19.071) Active confirmed Vital Signs Blood pressure diastolic 65 mm Hg 02/10/2025 Height 5 ft 7inch in 02/10/2025 Blood pressure systolic 126 mm Hg 02/10/2025 Weight 166 lbs 02/10/2025 BMI 26 kg/m2 02/10/2025 Encounters Encounter Location Date Provider Diagnosis [address] [address] 05/04/2024 Chayito Black Pain in left foot [...] Bunion, left M21.612 and Bunion, right M21.[address] [address] 02/10/2025 Tracy Mendenhall Arthralgia of right ankle M25.571 and Primary osteoarthritis of right ankle M19.[address] [address] 05/04/2024 Chayito Paredes [address] [address] 05/04/2024 Chayito Paredes Assessments Encounter Date Diagnosis (ICD Code) Assessment Notes Treatment Notes Treatment Clinical Notes Section Notes 05/04/2024 Pain in left foot (ICD-10 - M79.672) 05/04/2024 Acquired hallux interphalangeus of right foot (ICD-10 - M20.11) 02/10/2025 Arthralgia of right ankle (ICD-10 - M25.571) 02/10/2025 Primary osteoarthritis of right ankle (ICD-10 - M19.071) 05/04/2024 Pain in left ankle and joints [...] right (ICD-10 - M21.611) Plan Of Treatment Pending Test Test Name Order Date X ray : Ankle, right 3V 02/10/2025 Next Appt Details Provider Name:Tracy Chang radha, 03/24/2025 09:00:00 AM, [address] [place] [address], [phone], Insurance Providers Payer Name Payer Address Payer Phone Subscriber Number Group Number Insured Name Patient Relationship to Insured Coverage Start Date Coverage End Date Medicare National Govt Svcs Inc [address] [facility] [place] [address] [id number] Oumar Alley Self - patient is the insured 8 for Life [address] [place] [address] [id number] Alley Oseguera Self - patient is the insured Medical (General) History Medical History History ICD Code Broken bones Cataracts covid-19 High Blood Pressure Osteoporosis Sciatica
== END 2025-02-17 11:32 | disposition home or self-care (01) ==
LOC: HO.HMGAL 11:32
PROVIDERS: PCP Internal Medicine; Visit Provider Registered Nurse Emergency
DX: J30.89 Other allergic rhinitis (principal)
CPT/HCPCS: 95117; 95165

== ENCOUNTER 2025-02-24 15:11 | Outpatient (AMB) | payer MEDICARE, OTHER, SELFPAY ==
--- OUTSIDE RECORDS SUMMARY | 2025-02-25 03:45 | XMS_ITS | Patient Health Record ---
Author Organization [facility] Address [address] [facility] [place], [place] [address] Care Team Providers Care Filler Block Inserter Remover Name Role Phone Kirsten Dick Primary Care Provider Unavail able Mendenhall, Tracy Unavailable [phone] Black, Chayito Unavailable [phone] Allergies No Known Allergies Results Component Value [...] Status Risk Notes Problem Acquired hallux valgus (34963784) Acquired hallux interphalangeus of left foot (M20.12) Active confirmed Problem Acquired hallux valgus (03714539) Acquired hallux interphalangeus of right foot (M20.11) Active confirmed Problem Localized, primary osteoarthritis of the ankle and/or foot (970645979) Primary osteoarthritis of right ankle (M19.071) Active confirmed Vital Signs Blood pressure diastolic 65 mm Hg 02/10/2025 Height 5 ft 7inch in 02/10/2025 Blood pressure systolic 126 mm Hg 02/10/2025 Weight 166 lbs 02/10/2025 BMI 26 kg/m2 02/10/2025 Encounters Encounter Location Date Provider Diagnosis [address] [address] 05/04/2024 Chayito Black Pain in left foot [...] left M21.612 and Bunion, right M21.[address] [address] 02/10/2025 Tracy Mendenhall Arthralgia of right ankle M25.571 and Primary osteoarthritis of right ankle M19.[address] [address] 05/04/2024 Chayito Paredes [address] [address] 05/04/2024 Chayito Paredes Assessments Encounter Date Diagnosis [...] Provider Name:Tracy Chang radha, 03/24/2025 09:00:00 AM, [address] [place] [address], [phone], Insurance Providers Payer Name Payer Address Payer Phone Subscriber Number Group Number Insured Name Patient Relationship to Insured Coverage Start Date Coverage End Date Medicare National Govt Svcs Inc [address] [facility] [place] [address] [phone] [id number] Oumar Alley Self - patient is the insured 8 for Life [address] [place] [address] [id number] Alley Oseguera Self - patient is the insured Medical (General) History Medical History History ICD Code Broken bones Cataracts covid-19 High Blood Pressure Osteoporosis Sciatica
== END 2025-02-24 15:11 | disposition home or self-care (01) ==
LOC: HO.HMGAL 15:11
PROVIDERS: PCP Internal Medicine; Visit Provider Registered Nurse Emergency
DX: J30.89 Other allergic rhinitis (principal)
CPT/HCPCS: 95117; 95165

== ENCOUNTER 2025-03-01 13:58 | Outpatient (AMB) | payer MEDICARE, OTHER, SELFPAY | END 2025-03-01 14:01 | disposition home or self-care (01) | LOC: HO.HMGAL 13:58 | PROVIDERS: PCP Internal Medicine; Visit Provider Registered Nurse Emergency | DX: J30.89 Other allergic rhinitis (principal) | CPT/HCPCS: 95117; 95165 ==

== ENCOUNTER 2025-03-10 13:15 | Outpatient (AMB) | payer MEDICARE, OTHER, SELFPAY | END 2025-03-10 13:17 | disposition home or self-care (01) | LOC: HO.HMGAL 13:15 | PROVIDERS: PCP Internal Medicine; Visit Provider Registered Nurse Emergency | DX: J30.89 Other allergic rhinitis (principal) | CPT/HCPCS: 95117; 95165 ==

== ENCOUNTER 2025-03-17 12:49 | Outpatient (AMB) | payer MEDICARE, OTHER, SELFPAY | END 2025-03-17 12:50 | disposition home or self-care (01) | LOC: HO.HMGAL 12:49 | PROVIDERS: PCP Internal Medicine; Visit Provider Registered Nurse Emergency | DX: J30.89 Other allergic rhinitis (principal) | CPT/HCPCS: 95117; 95165 ==

== ENCOUNTER 2025-03-22 14:12 | Outpatient (AMB) | payer MEDICARE, OTHER, SELFPAY ==
--- OUTSIDE RECORDS SUMMARY | 2025-03-22 20:39 | XMS_ITS | Patient Health Record ---
Author Organization [facility] Address [address] [facility] [place], [place] [address] Care Team Providers Care Video Game Tester Name Role Phone Kirsten Dick Primary Care Provider Unavail able Mendenhall, Tracy Unavailable [phone] Black, Chayito Unavailable [phone] Allergies No Known Allergies Results Component Value [...] Status Risk Notes Problem Acquired hallux valgus (77417571) Acquired hallux interphalangeus of left foot (M20.12) Active confirmed Problem Acquired hallux valgus (90066473) Acquired hallux interphalangeus of right foot (M20.11) Active confirmed Problem Localized, primary osteoarthritis of the ankle and/or foot (204778479) Primary osteoarthritis of right ankle (M19.071) Active confirmed Vital Signs Blood pressure diastolic 65 mm Hg 02/10/2025 Height 5 ft 7inch in 02/10/2025 Blood pressure systolic 126 mm Hg 02/10/2025 Weight 166 lbs 02/10/2025 BMI 26 kg/m2 02/10/2025 Encounters Encounter Location Date Provider Diagnosis [address] [address] 05/04/2024 Chayito Black Pain in left foot [...] Bunion, left M21.612 and Bunion, right M21.[address] [address] 02/10/2025 Tracy Mendenhall Arthralgia of right ankle M25.571 and Primary osteoarthritis of right ankle M19.[address] [address] 05/04/2024 Chayito Paredes [address] [address] 05/04/2024 Chayito Paredes Assessments Encounter Date Diagnosis [...] Provider Name:Tracy Chang radha, 03/24/2025 09:00:00 AM, [address] [place] [address], [phone], Insurance Providers Payer Name Payer Address Payer Phone Subscriber Number Group Number Insured Name Patient Relationship to Insured Coverage Start Date Coverage End Date Medicare National Govt Svcs Inc [address] [facility] [place] [address] [id number] Oumra Alley Self - patient is the insured 8 for Life [address] [place] [address] [id number] Alley Oseguera Self - patient is the insured Medical (General) History Medical History History ICD Code Broken bones Cataracts covid-19 High Blood Pressure Osteoporosis Sciatica
== END 2025-03-22 14:13 | disposition home or self-care (01) ==
LOC: HO.HMGAL 14:12
PROVIDERS: PCP Internal Medicine; Visit Provider Registered Nurse Emergency
DX: J30.89 Other allergic rhinitis (principal)
CPT/HCPCS: 95117; 95165

== ENCOUNTER 2025-03-29 13:24 | Outpatient (AMB) | payer MEDICARE, OTHER, SELFPAY ==
--- OUTSIDE RECORDS SUMMARY | 2025-03-24 04:00 | XMS_ITS ---
Author Organization [facility] garcía Whatley Address [address] [place] [address] Care Team Providers Care Product Sales Representative Name Role Phone Kirsten Dick Primary Care Provider Unavail able Tracy Mendenhall Unavailable [phone] Allergies No Known Allergies REASON FOR VISIT Ankle pain, Heel pain Medications Medication SIG (Take, Route, Frequency, Duration) Notes Start Date End Date Status Vitamin C Active Magnesium Active Vitamin D3 Active Physical Therapy . . . 2-3x/week; Durat ion: 3-4 weeks 03/26/2025 Active Calcium Active hydroCHLOROthiazide 12.5 MG 1 capsule in the morning Orally Once a day Active Lisinopril 20 MG 1 tablet Orally Once a day Active predniSONE 5 MG 4 tablets once a day for 3 days, 3 tablets once a day for 3 days, 2 tablets once a day for 3 days, 1 tablet once a day for 3 days Orally; Duration: 12 days 02/10/2025 Active Social History Tobacco Use: Social History Observation Description Date Details (start date - stop date) Former Smoker NA - NA Tobacco use other than smoking: Question Answer Notes Are you an other tobacco user? No Tobacco Control (Standard) Question Answer Notes Tobacco use: Former smoker Additional Findings: Tobacco non-user Current no nsmoker AUDIT-C (Standard) Question Answer Notes Did you have a drink containing alcohol in the p ast year? No Points 0 Interpretation Negative Problems Problem Type SNOMED Code ICD Code Onset Dates Problem Status W/U Status Risk Notes Problem Plantar fasciitis of right foot (441261082827839 01) Plantar fasciitis of right foot (M72.2) Active confirmed Problem Interstitial myositis (84473316) Interstitial myositis of right foot (M60.171) Active confirmed Vital Signs Height 5 ft 7inch in 03/24/2025 Weight 166 lbs 03/24/2025 BMI 26 kg/m2 03/24/2025 Blood pressure systolic 128 mm Hg 03/24/20 25 Blood pressure diastolic 65 mm Hg 025 Encounters Encounter Location Date Provider Diagnosis [facility] [address] [address] 03/24/2025 Tracy Mendenhall Arthralgia of right ankle M25.571 ; Primary osteoarthritis of right ankle M19.071 ; Pain in right foot M79.671 ; Plantar fasciitis of right foot M72.2 ; Calcaneal spur, right foot M77.31 ; 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 and Bursitis of right foot M77.51 Assessments Encounter Date Diagnosis (ICD Code) Assessment Notes Treatment Notes Treatment Clinical Notes Section Notes 03/24/2025 Arthralgia of right ankle (ICD-10 - M25.571) 03/24/2025 Primary osteoarthritis of right ankle (ICD-10 - M19.071) 03/24/2025 Pain in right foot (ICD-10 - M79.671) 03/24/2025 Plantar fasciitis of right foot (ICD-10 - M72.2) Patient Educated with: HEEL CORD STRETCHES.pdf (HEEL CORD STRETCHES.pdf ) Patient Educated with: RICE THERAPY.pdf (RICE THERAPY.pdf) 03/24/2025 Calcaneal spur, right foot (ICD-10 - M77.31) 03/24/2025 Interstitial myositis of right foot (ICD-10 - M60.171) 03/24/2025 Bursitis of right foot (ICD-10 - M77.51) Plan Of Treatment Medication Medication Name Sig Start Date Stop Date Notes Physical Therapy . . . 2-3x/week; Duration: 3-4 weeks 03/08 Treatment Notes Assessment Notes Plantar fasciitis of right foot Patient Educated with: HEEL CORD STRETCHES.pdf (HEEL CORD STRETCHES.pdf) Patient Educated with: RICE THERAPY.pdf (RICE THERAPY.pdf) Next Appt Details Follow Up: 3 Months, Reason: after PT Provider Name:Tracy garcia, 06/24/2025 10:15:00 AM, [address] [facility], [place], [address], Progress Notes * Edward OSEGUERAOB:1950 (74 yo F)Acc No.[id number]:03/24/2025 Progress Notes Patient: Alley MURPHY Provider: Daniela Mendenhall DPM :1950 A ge:74 Y S ex:Female Date:03/24/2025 Address:[facility] [address] , [place], [id number] Pcp:Kirsten Dick Subjective: * Chief Complaints: * A nkle painHeel pain * HPI: A nkle Pain: Nature: a diane, stiffness, swelling, throbbing. Location: O utside aspect of the Right ankle. Course: i mproved. H eel pain: Location: P roximal plantar aspect of Heel, RIGHT. Duration: s everal months. Course: w orse. Aggravated: s tanding, walking, walking first thing in the morning/after rest. Treatments: r est/alter normal daily activity. * ROS: G eneral/Constitutional: Nausea d enies. V omiting d enies. H sabra Thirst d enies. L oss appetite d enies. C hills d enies. F atigue d enies.?Fever d enies. N ight Sweats d enies. U nexplained weight loss d enies. U nexplained weight gain d enies. H EENTM: Dentures d enies. D izziness d enies. G lasses/contacts a dmits. R etinopathy d enies. B lurred/double vision d enies. T MJ?denies. D ischarge/drainage d enies. I mplants d enies. S ore throat d enies. D ental implants d enies. H marcelina of hearing d enies. D ifficulty chewing/swallowing/speaking d enies. N ose bleeds d enies. S ore mouth d enies. ? R espiratory: On Oxygen d enies. P neumonia/pleurisy d enies.?Bronchitis a dmits. E mphysema d enies. C oughing d enies. C ough blood?denies. S hortness of breath d enies. W heezing d enies. C ardiovascular: Pacemaker d enies. M RICE CLEANING MACHINE TENDER d enies. W PW d enies. C HF d enies. H eart attack d enies. S eptal defect d enies. R apid beat d enies. C hest pain d enies. A trial Fib. d enies. M urmur/Palpitations d enies. G astrointestinal: Hemorrhoids d enies. S tomach/Abdominal pain d enies. D ark blood stool d enies. I rritable bowel d enies. C onstipation d enies. D iarrhea d enies. H ematology: Swelling d enies. C lots d enies. V aricose Veins d enies. B ruising d enies. B leeding problem d enies. G enitourinary: Blood urine d enies. F requent/Painfu/urination/bladder control d enies. K idney stones d enies. I nfection (UTI) d enies. N ephropathy d enies. s ex trans dis (STD) d enies. P rostate d enies. M usculoskeletal: Hammertoes d enies. B unions d enies. B ack Pain d enies. M uscle Cramps/ Resting d enies. M uscle cramps / walking d enies.?Generalized aches and pains a dmits. W eakness d enies. I nteg.: Almodovar d enies. S cars d enies. C orns/calluses?admits. I ngrown nails d enies. P ainful nails d enies. O pen Sores d enies. R ashes d enies. N eurologic: Difficulty sleeping d enies. B rain disorder d enies. N umbness d enies. B alance trouble d enies. C onfusion d enies. F ainting/blackouts d enies. T ingling d enies. T remors d enies. * Medical History: * Surgical History: D enies Past Surgical History * Hospitalization/Major Diagno stic Procedure: D enies Past Hospitalization * Family History: M other: , diagnosed with Diabetic - NIDDM, Family history of arthritis. F ather: , heart attack, high blood pressure, diagnosed with Diabetic - NIDDM. S elana: brother, diagnosed with Diabetic - NIDDM. * Social History: T obacco Use: T obacco use other than smoking A re you an other tobacco user? N o Tobacco Control (Standard) T obacco use: F ormer smoker A dditional Findings: Tobacco non-user C urrent nonsmoker D rugs/Alcohol: D rugs H ave you used drugs other than those for medical reasons in the past 12 months? N o M iscellaneous: C affeine: yes. Children: yes, 1. Exercise: yes, walking, hiking. Marital status: , . Occupation: Retired,. D rug/Alcohol: A TANIKA-C (Standard) D id you have a drink containing alcohol in the past year? N o P oints 0 I nterpretation N egative * Medications: T akingCalcium Magnesium Vitamin C Vitamin D3 hydroCHLOROthiazide 12.5 MG Capsule 1 capsule in the morning Orally Once a day Lisinopril 20 MG Tablet 1 tablet Orally Once a day predniSONE 5 MG Tablet 4 tablets once a day for 3 days, 3 tablets once a day for 3 days, 2 tablets once a day for 3 days, 1 tablet once a day for 3 days Orally Medication List reviewed and reconciled with the patientTaking Calcium Taking Magnesium Taking Vitamin C Taking Vitamin D3 Taking hydroCHLOROthiazide 12.5 MG Capsule 1 capsule in the morning Orally Once a day Taking Lisinopril 20 MG Tablet 1 tablet Orally Once a day Taking predniSONE 5 MG Tablet 4 tablets once a day for 3 days, 3 tablets once a day for 3 days, 2 tablets once a day for 3 days, 1 tablet once a day for 3 days Orally Medication List reviewed and reconciled with the patient * Allergies: N .K.D.A.yes[Allergies Verified] Objective: * Vitals: H t:5 ft 7inch, Wt:166, BMI:26, Shoe size:9, BP:128/65mm Hg, Ht-cm: 170.18 cm, Wt- k.3 kg. * Examination: O rthopedic: MUSCLE STRENGTH: 5 /5 all groups in a symmetrical fashion , B/L. GAIT ABNORMALITY: a ntalgic. FOOT MORPHOLOGY: Pes Planus structure, Decreased Ankle joint dorsiflexion ROM, knee extended. ANKLE PAIN LOCATED: R IGHT, , Anterior ankle, Medial ankle, edema appreciated with tenderness along the course of posterior tibial tendon. FOOTWEAR EVALUATION: s hoe gear properties exacerbate patients complaints in relation to their foot/toe deformity , shoe gear properties exacerbate patients foot/toe deformity. 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 ORIENTED: p erson, place, and time. N eurological: SENSORY: N eurological exam reveals intact sensorium, pain sensation normal, vibration sensation intact, pinprick sensation is normal in the lower extremities, Pt denies, anesthesia, burning, paresthesia, tingling, B/L. TINEL'S COMPRESSION: N egative tarsal tunnel, jose pedis, and medial calcaneal nerves. DEEP TENDON REFLEXES: A chilles, 2/4, B/L. V ascular: DP PULSES (B): 3 /4, B/L. PT PULSES (B): 3 /4, B/L. CAPILLARY FILL TIME: i mmediate, all digits, B/L. TROPHIC CONDITION-TEXTURE/ELASTICITY/TURGOR/HAIR GROWTH (B):?normal, B/L. TEMPERTURE GRADIENT (C): w arm to cool, proximal to distal, B/L. PIGMENTATION: n ormal, B/L. EDEMA (C): a bsent, B/L. D ermatologic: SKIN FINDINGS: S kin exam reveals normal texture, elasticity, and turgor. There are no masses. The interspaces are clear. H eel Pain: INSPECTION: Pain on Palpation to Plantar Fascia med. and central bands, intrinsic musc., infra-calcaneal bursa, and med calc tubercle , RIGHT foot, No pain: posterior/superior heel, achilles bursa/tendon, sinus tarsi, peroneals, or with lateral heel compression; no limited STJ ROM, calor, or ecchymosis. Assessment: * Assessment: 1. A rthralgia of right ankle - M25.571 (Primary) S pecify :Acute problem, Complicated w/ Multiple Tx Options(4) 2 . P rimary osteoarthritis of right ankle - M19.071 S pecify :Acute problem, Complicated w/ Multiple Tx Options(4) 3 . P ain in right foot - M79.671 4 . P lantar fasciitis of right foot - M72.2 S pecify :Acute problem, Complicated w/ Multiple Tx Options(4), Dx New problem, Prognosis Uncertain (4) 5 . C alcaneal spur, right foot - M77.31 6 . I nterstitial myositis of right foot - M60.171 7 . B ursitis of right foot - M77.51 ? Plan: * Treatment: * Procedure Codes: * Preventive Medicine: Counseling: D iscussion: - 14: Office or other outpatient visit for the evaluation and management of an established patient, which required a medically appropriate history and/or examination and MODERATE level of DECISION MAKING for: 1 OR MORE CHRONIC PROBLEM(S) THATS WORSENING, 2 STABLE CHRONIC PROBLEMS, A NEWLY DIAGNOSED PROBLEM WITH UNCERTAIN PROGNOSIS, AN ACUTE COMPLICATED INJURY WITH MULTIPLE TREATMENT OPTIONS, OR AN ACUTE PROBLEM WITH ACCOMPANYING SYSTEMIC SYMPTOMS, THAT POSE(S) A MODERATE RISK OF MORBIDITY. THIS CONDITION MAY ALSO INCLUDE RX DRUG MANAGEMENT, OR A DECISON FOR MINOR SURGERY. The visit on the day of the encounter encompassed interpreting the data and educating the patient as to the nature of their condition, treatment options available according to their individual PMH, meds, allergies, and overall health/living conditions, as well as any potential risks or complications that may occur from a failure to adhere to, and participate in, the recommended course of therapy. The discussion included a complete verbal, and/or written explanation of the examination results, any x-rays taken, the proposed diagnosis, and outline of the treatment plan. A schedule for future care needs was also explained. The patient verbalized an understanding of the instructions at this time and agreed to be an active participant in their treatment. If the patient should think of any questions or concerns after the visit, I have encouraged the patient to call the office, ____. A nkle Pain: I explained to the patient the possible etiologies of their Ankle Pain, including foot type/shoegear/activity level/exercise routine and the risks/benefits of all the different treatment options for pain including: No treatment at all, Rest, Ice, NSAIDs(only if well tolerated after meals), New/supportive Shoegear, Strappings and Tapings, Foot/Ankle AFO Bracing, Stretching exercises, Deep Tissue Massage, Heel cups/cushions, Arch support/shoe inserts, Custom orthoses, Topical analgesics including Aspercream/Voltaren gel, Night splints for am stiffness, Physical Therapy, EPAT/ESWT, Interfil injection therapy. Advantages and disadvantages of each option were discussed and the patients questions re: shoegear, custom vs prefabricated inserts, activity level, PO vs Topical medications (and their respective potential complications/drug interactions/side effects), and consistency in home treatment regimens for optimal success were answered to their verbally confirmed satisfaction. A rthritis: T he patient was counseled on the various etiologies for their Arthritis including genetic, history of injury or trauma, abnormal foot biomechanics leading to excessive joint wear, and use/overuse. We discussed the various treatment options from no treatment, to topical analgesics such as Biofreeze gel, Aspercream, Voltaren gel, Lidoderm patches, CBD oils, THC creams, and Custom-compounded topical cream preparations to natural oral products such as Glucosamine Sulfate/Chondroitin/MSM/Collegen to analgesic Tylenol, to anti-inflammatory medications such as Ibuprofen/Naproxen, and the use of oral steroids if needed. Cardiac, Kidney, and GI issues were discussed RE: potential complications of oral anti-inflammatories. We discussed several other treatment options consisting of accom shoes, supportive innersoles, AFO bracing/support, cortisone injection therapy, and surgical resection of the arthritic joint(s) or fusion reconstruction if necessary. We discussed the advantages and disadvantages of conservative (vs) surgical treamtents including pain relief, improved function/activities of daily life, return to exercise to failure, expense, systemic complications, infection, [id number], prolongued postop course. Patient questions re: the various treatment options available, their successes and potential failures, and equipment operator intermodal yard effects were discussed and the answers were verbally confirmed understood. H eel pain: F ASCIITIS: I explained to the patient the possible etiologies of Plantar Fasciitis including foot type/shoegear/activity level/exercise routine and the risks/benefits of all the different treatment options for heel pain including: No treatment at all, Rest, Ice, NSAIDs(only if well tolerated after meals), New/supportive Shoegear, Strappings and Tapings, Stretching exercises, Deep Tissue Massage, Heel cups/cushions, Arch support/shoe inserts, Custom orthoses, Topical analgesics including Aspercream/Voltaren gel, Night splint AFO for am stiffness, Cortisone injection therapy, Cast boot with crutches/cane/or walker for assisted ambulation, Physical Therapy, EPAT/ESWT, Interfil injection therapy, as well as surgical [place]/Endoscopic Fasciitomy surgical procedures if needed. Recommendations were made to limit barefoot walking, eliminate wearing nonsupportive shoegear (i.e. flip- flops or sandals, or a shoe with an easily bendable, foldable, or twistable sole) and wear shoegear with a good solid sole, a supportive arch, and plenty of room for an insert/orthotic if necessary. If wearing sandals was required by the patient, we recommended orthopedic sandals such as Orthoheel or Birkenstock even while in the home. If the patient wore heels in the past, we recommended they continue, but eliminate the use of flats. The advantages and disadvantages of each option were discussed and the patients questions re: types of shoegear, custom vs prefabricated inserts, activity level, PO vs Topical medications (and their respective potential complications/drug interactions/side effects), and consistency in home treatment regimens for optimal success were answered to their satisfaction. Literature detailing plantar fasciitis and the various treatment options were dispensed and reviewed. RX for physical therapy dispensed to patient.? O rthotics: I explained to the patient the benefits of OT use. I explained that orthoses are medically necessary to decrease the foot pain through proper mechanical control, support of their foot, possibly prevent surgery, I explained to the patient the benefits of OT use. I explained that orthoses are medically necessary to decrease the foot pain through proper mechanical control, support of their foot , decrease stretch/strain on the plantar fascia. P .R.I.C.E.: T he patient was counseled on the use of P.R.I.C.E. and NSAIDS (if well tolerated) to aid in the recovery from their painful condition, Recommended Topical analgesics including Aspercream/Biofreeze/Voltaren gel as directed. S hoe Gear Counseling: T he patient and I reviewed the types of shoes they should be wearing. My recommendation included obtaining a well-fitted shoe with a good supportive, non-foldable nor twistable sole, plenty of toe/room for the forefoot, and proper arch support. Based on todays examination, I recommended the patient look for new shoes, by having their feet professionally measured. We discussed that generally the best time of the day for a shoe fitting is the afternoon. Different shoes types and brands to best match the patients occupation and vocation were discussed. Specific brand selection will be up to the patient, their individual foot condition/deformities, and fit. The patient and I reviewed the standard new shoe break in period by wearing them for a few hours a day while checking for redness or sores as wear time is increased. The patient verbally confirmed to understanding the information discussed. S tretching Exercises: S tretching and deep tissue massage exercises for the patients injury/diagnosis were discussed and demonstrated, handouts were dispensed. Screening/Special Tests: F all Risk Screening: N o falls in the past year F ALLS: Screening for Future Fall Risk Have you had any falls with injury in the past year? N o * Follow Up: 3 Months (Reason: after PT) * Images: * Sign off status: Completed true * Provider: Daniela Mendenhall DPM Date: 05/25/2024 Generated for Douglas metz/Andrzej/Sergoitting on: 05/30/2024 04:45 PM EST History and Physical Notes * HPI (History of Present Illness) Category Sub-Category Detail Notes Category Not es Heel pain Duration: several months Location: Proximal plantar asp ect of Heel, RIGHT Aggravated: standing, walking, w alking first thing in the morning/after rest Course: worse Treatments: rest/alter normal da kianna activity Ankle Pain Nature: aching, stiffness, swelling, throbbing Course: improved Location: Outside aspect of th e Right ankle Examination Category Sub-Category Detail Notes Category Not es Neurological SENSORY: Neurological exa m reveals intact sensorium, pain sensation normal, vibration sensation intact, pinprick sensation is normal in the lower extremities, Pt denies, anesthesia, burning, paresthesia, tingling, B/L TINEL'S COMPRESSION: Negative tarsal shikha gaviota, jose pedis, and medial calcaneal nerves DEEP TENDON REFLEXES: Achilles, 2/4, B/L Dermatologic SKIN FINDINGS: Skin exam reveal s normal texture, elasticity, and turgor. There are no masses. The interspaces are clear Orthopedic GAIT ABNORMALITY: antalgic FOOT MORPHOLOGY: Pes Planus structure , Decreased Ankle joint dorsiflexion ROM, knee extended ANKLE PAIN LOCATED: RIGHT, , Anterior an kle, Medial ankle, edema appreciated with tenderness along the course of posterior tibial tendon FOOTWEAR EVALUATION: shoe gear propertie s exacerbate patients complaints in relation to their foot/toe deformity , shoe gear properties exacerbate patients foot/toe deformity MUSCLE STRENGTH: 5/5 all groups in a symmetrical fashion , B/L General Examination GENERAL APPEARANCE: Reveals a pleasant, alert, well- nourished, well-developed, well hydrated individual, who demonstrates proper attention to hygiene/body habitus, and is in no acute distress, Pt serves as own historian for office visit today ORIENTED: person, place, and t radha Vascular DP PULSES (B): 3/4, B/L PT PULSES (B): 3/4, B/L CAPILLARY FILL TIME: immediate, all digi ts, B/L TEMPERTURE GRADIENT (C): warm to cool, p roximal to distal, B/L TROPHIC CONDITION-TEXTURE/ELASTICITY/TURGOR/HAIR GROWTH (B): normal, B/L EDEMA (C): absent, B/L PIGMENTATION: normal, B/L Heel Pain INSPECTION: Pain on Palpatio n to Plantar Fascia med. and central bands, intrinsic musc., infra-calcaneal bursa, and med calc tubercle , RIGHT foot, No pain: posterior/superior heel, achilles bursa/tendon, sinus tarsi, peroneals, or with lateral heel compression; no limited STJ ROM, calor, or ecchymosis
--- OUTSIDE RECORDS SUMMARY | 2025-03-29 16:45 | XMS_ITS | Patient Health Record ---
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 . . 2-3x/week; Durat ion: 3-4 weeks 03/26/2025 Active Lisinopril 20 MG 1 tablet Orally Once a day Active predniSONE 5 MG 4 tablets once a day for 3 days, 3 tablets once a day for 3 days, 2 tablets once a day for 3 days, 1 tablet once a day for 3 days Orally; Duration: 12 days 02/10/2025 Active Calcium Active Immunizations Vaccine Route Administration Date Status [...] Status Risk Notes Problem Acquired hallux valgus (02007328) Acquired hallux interphalangeus of left foot (M20.12) Active confirmed Problem Acquired hallux valgus (11159990) Acquired hallux interphalangeus of right foot (M20.11) Active confirmed Problem Plantar fasciitis of right foot (3161422388258877 1) Plantar fasciitis of right foot (M72.2) Active confirmed Problem Localized, primary osteoarthritis of the ankle and/or foot (790441385) Primary osteoarthritis of right ankle (M19.071) Active confirmed Problem Interstitial myositis (83703486) Interstitial myositis of right foot (M60.171) Active confirmed Vital Signs Blood pressure diastolic 65 mm Hg 03/24/2025 Height 5 ft 7inch in 03/24/2025 Blood pressure systolic 128 mm Hg 03/24/2025 Weight 166 lbs 03/24/2025 BMI 26 kg/m2 03/24/2025 Encounters Encounter Location Date Provider Diagnosis [address] [address] 05/04/2024 Chayito Black Pain in left foot [...] Bunion, left M21.612 and Bunion, right M21.[address] [address] 02/10/2025 Tracy Mendenhall Arthralgia of right ankle M25.571 and Primary osteoarthritis of right ankle M19.[address] [facility] [address] 03/24/2025 Tracy Mendenhall Arthralgia of right ankle M25.571 ; Primary osteoarthritis of right ankle M19.071 ; Pain in right foot M79.671 ; Plantar fasciitis of right foot M72.2 ; Calcaneal spur, right foot M77.31 ; 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 and Bursitis of right foot M77.[address] [address] 05/04/2024 Chayito Paredes [address] [address] 05/04/2024 Chayito Paredes Assessments Encounter Date Diagnosis (ICD Code) Assessment Notes Treatment Notes Treatment Clinical Notes Section Notes 05/04/2024 Pain in left foot (ICD-10 - M79.672) 05/04/2024 Acquired hallux interphalangeus of right foot (ICD-10 - M20.11) 02/10/2025 Arthralgia of right ankle (ICD-10 - M25.571) 02/10/2025 Primary osteoarthritis of right ankle (ICD-10 - M19.071) 03/24/2025 Arthralgia of right ankle (ICD-10 - M25.571) 03/24/2025 Primary osteoarthritis of right ankle (ICD-10 - M19.071) 05/04/2024 Pain in left ankle and joints of left foot (ICD-10 - M25.572) 05/04/2024 Bursitis of left foot (ICD-10 - M77.52) 03/24/2025 Pain in right foot (ICD-10 - M79.671) 05/04/2024 Pain in right foot (ICD-10 - M79.671) 03/24/2025 Plantar fasciitis of right foot (ICD-10 - M72.2) Patient Educated with: HEEL CORD STRETCHES.pdf (HEEL CORD STRETCHES.pdf ) Patient Educated with: RICE THERAPY.pdf (RICE THERAPY.pdf) 05/04/2024 Pain in right ankle and joints of right foot (ICD-10 - M25.571) 03/24/2025 Calcaneal spur, right foot (ICD-10 - M77.31) 05/04/2024 Bursitis of right foot (ICD-10 - M77.51) 03/24/2025 Interstitial myositis of right foot (ICD-10 - M60.171) 03/24/2025 Bursitis of right foot (ICD-10 - M77.51) 05/04/2024 Acquired hallux interphalangeus of left foot (ICD-10 - M20.12) 05/04/2024 Bunion, left (ICD-10 - M21.612) 05/04/2024 Bunion, right (ICD-10 - M21.611) Plan Of Treatment Pending Test Test Name Order Date X ray : Ankle, right 3V 02/10/2025 Next Appt Details Provider Name:Tracy Chang radha, 06/24/2025 10:15:00 AM, [address] [place] [address], [phone], Insurance Providers Payer Name Payer Address Payer Phone Subscriber Number Group Number Insured Name Patient Relationship to Insured Coverage Start Date Coverage End Date Medicare National [facility] [address] [place] [address] [id number] Alley Oseguera Self - patient is the insured [employer] [address] [place] [address] [id number] Alley Oseguera Self - patient is the insured Medical (General) History Medical History History ICD Code Broken bones Cataracts covid-19 High Blood Pressure Osteoporosis Sciatica
== END 2025-03-29 13:24 | disposition home or self-care (01) ==
LOC: HO.HMGAL 13:24
PROVIDERS: PCP Internal Medicine; Visit Provider Registered Nurse Emergency
DX: J30.89 Other allergic rhinitis (principal)
CPT/HCPCS: 95117; 95165

== ENCOUNTER 2025-04-07 10:38 | Outpatient (AMB) | payer MEDICARE, OTHER, SELFPAY ==
--- OUTSIDE RECORDS SUMMARY | 2025-04-07 11:52 | XMS_ITS | Patient Health Record ---
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 confirmed Problem Acquired hallux valgus (60858384) Acquired hallux interphalangeus of right foot (M20.11) Active confirmed Problem Plantar fasciitis of right foot (3695977075134479 1) Plantar fasciitis of right foot (M72.2) Active confirmed Problem Localized, primary osteoarthritis of the ankle and/or foot (277746296) Primary osteoarthritis of right ankle (M19.071) Active confirmed Problem Interstitial myositis (59119468) Interstitial myositis of right foot (M60.171) Active confirmed Vital Signs Blood pressure diastolic 65 mm Hg 03/24/2025 Height 5 ft 7inch in 03/24/2025 Blood pressure systolic 128 mm Hg 03/24/2025 Weight 166 lbs 03/24/2025 BMI 26 kg/m2 03/24/2025 Encounters Encounter Location Date Provider Diagnosis [address] [address] 05/04/2024 Chayito Black Pain in left foot [...] left M21.612 and Bunion, right M21.[address] [address] 02/10/2025 Tracy Mendenhall Arthralgia of right ankle M25.571 and Primary osteoarthritis of right ankle M19.[address] [facility] [address] 03/24/2025 Tracy Mendenhall Arthralgia of right ankle M25.571 ; Primary osteoarthritis of right ankle M19.071 ; Pain in right foot M79.671 ; Plantar fasciitis of right foot M72.2 ; Calcaneal spur, right foot M77.31 ; 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 and Bursitis of right foot M77.[address] [address] 05/04/2024 Chayito Paredes [address] [address] 05/04/2024 Chayito Paredes Assessments Encounter Date Diagnosis [...] Provider Name:Tracy Chang radha, 06/24/2025 10:15:00 AM, [address] [place] [address], [phone], Insurance Providers Payer Name Payer Address Payer Phone Subscriber Number Group Number Insured Name Patient Relationship to Insured Coverage Start Date Coverage End Date Medicare National [facility] [address] [place] [address] [id number] Alley Oseguera Self - patient is the insured 8 [employer] [address] [place] [address] [id number] Alley Oseguera Self - patient is the insured Medical (General) History Medical History History ICD Code Broken bones Cataracts covid-19 High Blood Pressure Osteoporosis Sciatica
== END 2025-04-07 10:44 | disposition home or self-care (01) ==
LOC: HO.HMGAL 10:38
PROVIDERS: PCP Internal Medicine; Visit Provider Registered Nurse Emergency
DX: J30.89 Other allergic rhinitis (principal)
CPT/HCPCS: 95117; 95165